=== PATIENT | male | born 1985 | race Caucasian/White ===

== ENCOUNTER 2018-09-29 22:20 | Emergency (ER) | payer SELFPAY ==
[2018-09-29] MEDS ORDERED: NA CHLORIDE 0.9% 1,000 ML ONE (23:09)
[2018-09-29 23:19] LABS: Absolute Lymphocytes (CBC) 1.5 K/uL (0.7-4.9); Basophils % 0.8 % (0-1.3); Hematocrit 49.8 % (39.6-49.0); Lymphocytes % 20.1 % (15.3-44.8); MPV 8.7 fL (7.6-11.3); RBC Red Blood Cell Count 5.13 M/uL (4.33-5.43)
[2018-09-29 23:39] LABS: Albumin 4.1 g/dL (3.4-5.0); Bilirubin Total 0.3 mg/dL (0.2-1.0); Protein, Total 7.3 g/dL (6.4-8.2)
--- NOTE | 2018-09-30 00:13 | ER ---
Nurse's Notes [facility] Name: Sami Denney Age: 33 yrs Sex: Male : 1985 Arrival Date: 09/29/2018 Time: 22:25 Bed 13 Private MD: Diagnosis: Rash and other nonspecific skin eruption;Dermatitis, unspecified;Heat exhaustion, unspecified Presentation: 09/29 22:32 Presenting complaint: Patient states: rash on bilateral arms X6 months. pt c/o ak1 dizziness and nausea when working out in the sun. Transition of care: patient was not received from another setting of care. Onset of symptoms is unknown. Risk Assessment: Do you want to hurt yourself or someone else? Patient reports no desire to harm self or others. Initial Sepsis Screen: Does the patient meet any 2 criteria? No. Patient's initial sepsis screen is negative. Does the patient have a suspected source of infection? No. Patient's initial sepsis screen is negative. Care prior to arrival: None. 22:32 Method Of Arrival: Ambulatory ak1 22:32 Acuity: BAKARI 3 ak1 Triage Assessment: 22:33 General: Appears in no apparent distress. Behavior is calm, cooperative. Pain: Denies ak1 pain. Historical: - Allergies: 22:33 No Known Allergies; ak1 - Home Meds: 22:33 None [Active]; ak1 - PMHx: 22:33 None; ak1 - PSHx: 22:33 sinus sx; left ear sx; ak1 - Immunization history:: Adult Immunizations unknown. - Social history:: Smoking status: Patient uses tobacco products, smokes one-half pack cigarettes per day. - Ebola Screening: : No symptoms or risks identified at this time. Screenin:50 Abuse screen: Denies threats or abuse. Nutritional screening: No deficits noted. jd3 Tuberculosis screening: No symptoms or risk factors identified. Fall Risk Ambulatory Aid- None/Bed Rest/Nurse Assist (0 pts). Gait- Normal/Bed Rest/Wheelchair (0 pts) Mental Status- Oriented to own ability (0 pts). Total Pryor Fall Scale indicates No Risk (0-24 pts). Assessment: 22:47 General: Appears in no apparent distress. uncomfortable, well nourished, Behavior is jd3 calm, cooperative, appropriate for age, Reports fatigue for 12-24 hours. Pain: Complains of pain in right arm and left arm Quality of pain is described as stinging. Neuro: Level of Consciousness is awake, alert, obeys commands, Oriented to person, place, time, situation. Cardiovascular: Denies chest pain, Capillary refill < 3 seconds Patient's skin is warm and dry. Respiratory: Airway is patent Respiratory effort is even, unlabored, Respiratory pattern is regular, symmetrical, Denies cough, shortness of breath. GI: No signs and/or symptoms were reported involving the gastrointestinal system. Reports nausea earlier in the day associated with dizziness. Patient currently denies constipation, diarrhea. : No signs and/or symptoms were reported regarding the genitourinary system. EENT: No signs and/or symptoms were reported regarding the EENT system. Derm: Skin is intact, Skin is dry, Skin is normal, Skin temperature is warm. Musculoskeletal: Circulation, motion, and sensation intact. Range of motion: intact in all extremities. 23:40 Reassessment: Patient appears in no apparent distress at this time. No changes from jd3 previously documented assessment. Patient and/or family updated on plan of care and expected duration. Pain level reassessed. Patient is alert, oriented x 3, equal unlabored respirations, skin warm/dry/pink. awaiting results. 09/30 00:22 Reassessment: Patient appears in no apparent distress at this time. Patient and/or jd3 family updated on plan of care and expected duration. Pain level reassessed. Patient is alert, oriented x 3, equal unlabored respirations, skin warm/dry/pink. reported understanding of discharge instructions. even and steady gait upon discharge. Vital Signs: 09/29 22:33 BP 150 / 108; Pulse 108; Resp 18; Temp 98.2; Pulse Ox 100% on R/A; Weight 108.86 kg ak1 (R); Height 6 ft. 3 in. (190.50 cm) (R); Pain 0/10; 09/30 00:21 BP 147 / 89; Pulse 96; Resp 17 S; Pulse Ox 100% on R/A; jd3 09/29 22:33 Body Mass Index 30.00 (108.86 kg, 190.50 cm) ak1 ED Course: 09/29 22:25 Patient arrived in ED. ds1 22:33 Triage completed. ak1 22:33 Arm band placed on Patient placed in an exam room, on a stretcher, Patient notified of ak1 wait time. 22:36 Jose A Nolen MD is Attending Physician. ruiz 22:47 Mahesh Graham, RN is Primary Nurse. jd3 22:50 Patient has correct armband on for positive identification. Bed in low position. Call jd3 light in reach. Side rails up X 1. 23:05 Initial lab(s) drawn, by me, sent to lab. EKG done, by ED staff, reviewed by Jose A Nolen MD. Inserted saline lock: 20 gauge in right antecubital area, using aseptic technique. Blood collected. 09/30 00:08 Abiodun Watts MD is Referral Physician. [facility] 00:23 No provider procedures requiring assistance completed. IV discontinued, intact, jd3 bleeding controlled, No redness/swelling at site. Pressure dressing applied. Administered Medications: 09/29 23:17 Drug: NS 0.9% 1000 ml Route: IV; Rate: 1 bolus; Site: right antecubital; jd3 09/30 00:21 Follow up: Response: No adverse reaction; IV Status: Completed infusion; IV Intake: jd3 1000ml Intake: 00:21 IV: 1000ml; Total: 1000ml. jd3 Outcome: 00:08 Discharge ordered by . [facility] 00:23 Discharged to home ambulatory. jd3 00:23 Condition: stable 00:23 Discharge instructions given to patient, Instructed on discharge instructions, follow up and referral plans. medication usage, Demonstrated understanding of instructions, follow-up care, medications, Prescriptions given X 3. 00:24 Patient left the ED. jd3 Signatures: Jose A Nolen MD MD cha Sanford, Demi ds1 Claire Mendoza RN RN ak1 Mahesh Graham, RN RN Isaiah Alcantara, RN RN tr5
--- NOTE | 2018-09-30 00:14 | EDPHYS ---
Physician Documentation [facility] Name: Sami Denney Age: 33 yrs Sex: Male : 1985 Arrival Date: 09/29/2018 Time: 22:25 Bed 13 Private MD: MONTSE Physician Jose A Nolen HPI: 09/29 22:56 This 33 yrs old Male presents to ER via Ambulatory with complaints of Rash. ruiz 22:56 This 33 yrs old Male presents to ER via Ambulatory with complaints of Rash. [facility] 22:56 The patient's rash thought to be caused by Eczema Dermatitis. The rash is located on [facility] the right arm and left arm. The rash can be described as erythematous. Onset: The symptoms/episode began/occurred 6 month(s) ago. Associated signs and symptoms: Pertinent positives: nausea. Historical: - Allergies: 22:33 No Known Allergies; ak1 - Home Meds: 22:33 None [Active]; ak1 - PMHx: 22:33 None; ak1 - PSHx: 22:33 sinus sx; left ear sx; ak1 - Immunization history:: Adult Immunizations unknown. - Social history:: Smoking status: Patient uses tobacco products, smokes one-half pack cigarettes per day. - Ebola Screening: : No symptoms or risks identified at this time. ROS: 22:58 Constitutional: Negative for fever, chills, and weight loss, Eyes: Negative for injury, ruiz pain, redness, and discharge, ENT: Negative for injury, pain, and discharge, Neck: Negative for injury, pain, and swelling, Cardiovascular: Negative for chest pain, palpitations, and edema, Respiratory: Negative for shortness of breath, cough, wheezing, and pleuritic chest pain, Back: Negative for injury and pain, : Negative for injury, bleeding, discharge, and swelling, Neuro: Negative for headache, weakness, numbness, tingling, and seizure, Psych: Negative for depression, anxiety, suicide ideation, homicidal ideation, and hallucinations, Allergy/Immunology: Negative for hives, rash, and allergies, Endocrine: Negative for neck swelling, polydipsia, polyuria, polyphagia, and marked weight changes. 22:58 Abdomen/GI: Positive for nausea, vomiting. 22:58 MS/extremity: Positive for rash. 22:58 Neuro: Positive for dizziness. Exam: 22:58 Constitutional: This is a well developed, well nourished patient who is awake, alert, ruiz and in no acute distress. Head/Face: Normocephalic, atraumatic. Eyes: Pupils equal round and reactive to light, extra-ocular motions intact. Lids and lashes normal. Conjunctiva and sclera are non-icteric and not injected. Cornea within normal limits. Periorbital areas with no swelling, redness, or edema. ENT: Nares patent. No nasal discharge, no septal abnormalities noted. Tympanic membranes are normal and external auditory canals are clear. Oropharynx with no redness, swelling, or masses, exudates, or evidence of obstruction, uvula midline. Mucous membranes moist. Neck: Trachea midline, no thyromegaly or masses palpated, and no cervical lymphadenopathy. Supple, full range of motion without nuchal rigidity, or vertebral point tenderness. No Meningismus. Chest/axilla: Normal chest wall appearance and motion. Nontender with no deformity. No lesions are appreciated. Cardiovascular: Regular rate and rhythm with a normal S1 and S2. No gallops, murmurs, or rubs. Normal PMI, no JVD. No pulse deficits. Respiratory: Lungs have equal breath sounds bilaterally, clear to auscultation and percussion. No rales, rhonchi or wheezes noted. No increased work of breathing, no retractions or nasal flaring. Back: No spinal tenderness. No costovertebral tenderness. Full range of motion. Male : Normal genitalia with no discharge or lesions. Skin: Warm, dry with normal turgor. Normal color with no rashes, no lesions, and no evidence of cellulitis. MS/ Extremity: Pulses equal, no cyanosis. Neurovascular intact. Full, normal range of motion. Neuro: Awake and alert, GCS 15, oriented to person, place, time, and situation. Cranial nerves II-XII grossly intact. Motor strength 5/5 in all extremities. Sensory grossly intact. Cerebellar exam normal. Normal gait. Psych: Awake, alert, with orientation to person, place and time. Behavior, mood, and affect are within normal limits. 22:58 Abdomen/GI: Inspection: abdomen appears normal, Bowel sounds: normal, Palpation: abdomen is soft and non-tender, Liver: no appreciated palpable abnormalities, Hernia: not appreciated. Vital Signs: 22:33 BP 150 / 108; Pulse 108; Resp 18; Temp 98.2; Pulse Ox 100% on R/A; Weight 108.86 kg ak1 (R); Height 6 ft. 3 in. (190.50 cm) (R); Pain 0/10; 09/30 00:21 BP 147 / 89; Pulse 96; Resp 17 S; Pulse Ox 100% on R/A; jd3 09/29 22:33 Body Mass Index 30.00 (108.86 kg, 190.50 cm) ak1 MDM: 09/29 22:36 Patient medically screened. [facility] 23:02 Data reviewed: vital signs, nurses notes, lab test result(s), EKG. [facility] 09/29 22:56 Order name: CBC with Diff; Complete Time: 23:30 [facility] 09/29 22:56 Order name: Comprehensive Metabolic Panel; Complete Time: 00:08 [facility] 09/29 22:56 Order name: EKG; Complete Time: 22:56 [facility] 09/29 23:30 Order name: Troponin (emerg Dept Use Only); Complete Time: 00:08 [facility] 09/30 00:20 Order name: Urine Dipstick--Ancillary (enter results) [facility] 09/29 22:56 Order name: Urine Dipstick-Ancillary (obtain specimen); Complete Time: 00:21 [facility] 09/29 22:56 Order name: EKG - Nurse/Tech; Complete Time: 23:05 [facility] Administered Medications: 23:17 Drug: NS 0.9% 1000 ml Route: IV; Rate: 1 bolus; Site: right antecubital; jd3 09/30 00:21 Follow up: Response: No adverse reaction; IV Status: Completed infusion; IV Intake: jd3 1000ml Disposition: 09/30/18 00:08 Discharged to Home. Impression: Rash and other nonspecific skin eruption, Dermatitis, unspecified, Heat exhaustion, unspecified. - Condition is Stable. - Discharge Instructions: Contact Dermatitis, Rash, Rash, [id number], Contact Dermatitis, [id number], Skin Biopsy. - Prescriptions for nystatin- triamcinolone 100,000-0.1 unit/g-% Topical cream - apply 1 application by TOPICAL route 2 times per day; 90 gram. Pepcid 20 mg Oral Tablet - take 1 tablet by ORAL route every 12 hours for 10 days; 20 tablet. Medrol (Johnny) 4 mg Oral Tablets, Dose Pack - take 1 tablet by ORAL route as directed - follow package instructions; 1 packet. - Work release form, Medication Reconciliation Form, Thank You Letter, Antibiotic Education, Prescription Opioid Use form. - Follow up: Private Physician; When: 2 - 3 days; Reason: Recheck today's complaints, Continuance of care, Re-evaluation by your physician. Follow up: Abiodun Watts; When: 2 - 3 days; Reason: Recheck today's complaints, Re-evaluation by your physician. - Problem is new. - Symptoms have improved. Signatures: Dispatcher [employer] EDJose A Friedman MD MD cha Krenek, Amber RN RN ak1 Mahesh Graham RN RN jd3 Corrections: (The following items were deleted from the chart) 00:24 00:08 09/30/2018 00:08 Discharged to Home. Impression: Rash and other nonspecific skin jd3 eruption; Dermatitis, unspecified; Heat exhaustion, unspecified. Condition is Stable. Discharge Instructions: Contact Dermatitis, Rash, Rash, [id number], Contact Dermatitis, [id number], Skin Biopsy. Prescriptions for nystatin-triamcinolone 100,000-0.1 unit/g-% Topical cream - apply 1 application by TOPICAL route 2 times per day; 90 gram, Pepcid 20 mg Oral Tablet - take 1 tablet by ORAL route every 12 hours for 10 days; 20 tablet, Medrol (Johnny) 4 mg Oral Tablets, Dose Pack - take 1 tablet by ORAL route as directed - follow package instructions; 1 packet. and Forms are Medication Reconciliation Form, Thank You Letter, Antibiotic Education, Prescription Opioid Use. Follow up: Private Physician; When: 2 - 3 days; Reason: Recheck today's complaints, Continuance of care, Re-evaluation by your physician. Follow up: Abiodun Watts; When: 2 - 3 days; Reason: Recheck today's complaints, Re-evaluation by your physician. Problem is new. Symptoms have improved. ruiz
[2018-09-30 00:25] LABS: Urine Blood NEGATIVE (NEG); Urine Glucose NEGATIVE (NEG); Urine Protein NEGATIVE (NEG); Urine Specific Gravity 1.015 (1.005-1.030)
--- NOTE | 2018-09-30 07:45 | EKG ---
Test Date: 2018-09-29 Test Time: 23:02:45 Vaccinator: ARGENIS MEASUREMENT RESULTS: Intervals: Rate: 101 [place]: 122 QRSD: 94 QT: 332 QTc: 430 [place]: P: 81 [place]: 122 QRS: 84 T: 37 INTERPRETIVE STATEMENTS: Sinus tachycardia Otherwise normal ECG No previous ECG available for comparison Electronically Signed On 09-30-18 07:44:58 CDT by Hernan Currie
== END 2018-09-30 00:24 | disposition home or self-care (01) ==
LOC: ER 22:20
DX: L30.9 Dermatitis, unspecified (principal); T67.5XXA Heat exhaustion, unspecified, initial encounter; X58.XXXA Exposure to other specified factors, initial encounter; Y93.89 Activity, other specified; Y92.9 Unspecified place or not applicable; F17.210 Nicotine dependence, cigarettes, uncomplicated
CPT/HCPCS: 36415; 80053; 81003; 84484; 85025; 93005; 96360; 99284; J7030

== ENCOUNTER 2018-11-12 22:50 | Emergency (ER) | payer SELFPAY ==
--- NOTE | 2018-11-13 01:21 | ER ---
Nurse's Notes [facility] Name: Sami Denney Age: 33 yrs Sex: Male : 1985 Arrival Date: 11/12/2018 Time: 22:57 Bed 25 Private MD: Diagnosis: Presentation: 11/12 23:14 Presenting complaint: Patient states: that for the past week he has had upper back pain fc and neck pain. Then started to have shortness of breath, cough and sore throat along with fatigue. Denies any injuries. Transition of care: patient was not received from another setting of care. Onset of symptoms was November 04, 2018. Risk Assessment: Do you want to hurt yourself or someone else? Patient reports no desire to harm self or others. Initial Sepsis Screen: Does the patient meet any 2 criteria? No. Patient's initial sepsis screen is negative. Does the patient have a suspected source of infection? No. Patient's initial sepsis screen is negative. Care prior to arrival: Medication(s) given: BC Powder last at 1700. 23:14 Method Of Arrival: Ambulatory fc 23:14 Acuity: BAKARI 3 fc Historical: - Allergies: 23:17 No Known Allergies; fc - Home Meds: 23:17 None [Active]; fc - PMHx: 23:17 None; fc - PSHx: 23:17 Left thumb surg; sinus surg; cyst removed from face; fc - Immunization history:: Last tetanus immunization: up to date Flu vaccine is not up to date. Patient has never been vaccinated. - Social history:: Smoking status: Patient uses tobacco products, smokes one-half pack cigarettes per day, Patient uses alcohol, occasionally. Patient/guardian denies using street drugs. - Ebola Screening: : Patient negative for fever greater than or equal to 101.5 degrees Fahrenheit, and additional compatible Ebola Virus Disease symptoms Patient denies exposure to infectious person Patient denies travel to an Ebola-affected area in the 21 days before illness onset. Screenin:18 Abuse screen: Denies threats or abuse. Nutritional screening: No deficits noted. fc Tuberculosis screening: No symptoms or risk factors identified. Fall Risk None identified. Assessment: 23:23 General: Appears in no apparent distress. comfortable, Behavior is calm, cooperative, ca1 appropriate for age. Pain: Complains of pain in left trapezius, right trapezius and thoracic area Pain currently is 8 out of 10 on a pain scale. Quality of pain is described as pinching, Pain began a week ago Aggravated by increased activity. Neuro: Level of Consciousness is awake, alert, obeys commands, Oriented to person, place, time, situation. Cardiovascular: Heart tones S1 S2 present Capillary refill < 3 seconds Patient's skin is warm and dry. Pulses are all present. Respiratory: Reports shortness of breath Airway is patent Respiratory effort is even, unlabored, Respiratory pattern is regular, symmetrical, Breath sounds are clear bilaterally. GI: Abdomen is flat, non-distended, Bowel sounds present X 4 quads. Abd is soft and non tender X 4 quads. : No deficits noted. No signs and/or symptoms were reported regarding the genitourinary system. EENT: Throat is reddened Reports throat hurts and losing his voice. Derm: Skin is intact, is healthy with good turgor, Skin is pink, warm \T\ dry. Musculoskeletal: Circulation, motion, and sensation intact. Capillary refill < 3 seconds, Range of motion: intact in all extremities. 11/13 01:19 Reassessment: patient found eloped at 0100. rv Vital Signs: 11/12 23:17 BP 145 / 100; Pulse 80; Resp 20; Temp 98.4(O); Pulse Ox 100% on R/A; Weight 111.13 kg fc (R); Height 6 ft. 3 in. (190.50 cm) (R); Pain 8/10; 23:17 Body Mass Index 30.62 (111.13 kg, 190.50 cm) ED Course: 22:57 Patient arrived in ED. cf2 23:15 Triage completed. fc 23:17 Arm band placed on Patient placed in an exam room, on a stretcher. fc 23:18 Patient has correct armband on for positive identification. Call light in reach. fc 23:23 Bed in low position. Side rails up X 1. Pulse ox on. NIBP on. ca1 23:51 Missael Marino RN is Primary Nurse. rv 11/13 00:28 Roberto Diaz MD is Attending Physician. ps1 01:19 No provider procedures requiring assistance completed. Patient did not have IV access rv during this emergency room visit. Administered Medications: No medications were administered Outcome: 01:19 Eloped from patient exam room, before seeing physician Time discovered patient gone: rv November 13, 2018 at 01:00 01:19 Condition: unchanged 01:20 Patient left the ED. rv Signatures: Mony Beatty RN RN fc Roberto Diaz MD MD ps1 Vicente, Ronaldo, RN RN rv Amanda Mcelroy RN RN [facility] Keith Díaz 2
--- NOTE | 2018-11-13 01:21 | EDPHYS ---
Physician Documentation [facility] Name: Sami Denney Age: 33 yrs Sex: Male : 1985 Arrival Date: 11/12/2018 Time: 22:57 Bed 25 Private MD: ED Physician Roberto Diaz HPI: 11/13 00:59 This 33 yrs old Male presents to ER via Ambulatory with complaints of Back ps1 Pain, Neck Problem, Shortness Of Breath. 00:59 Patient belongings not in room. Appears to have eloped. . ps1 Historical: - Allergies: 11/12 23:17 No Known Allergies; fc - Home Meds: 23:17 None [Active]; fc - PMHx: 23:17 None; fc - PSHx: 23:17 Left thumb surg; sinus surg; cyst removed from face; fc - Immunization history:: Last tetanus immunization: up to date Flu vaccine is not up to date. Patient has never been vaccinated. - Social history:: Smoking status: Patient uses tobacco products, smokes one-half pack cigarettes per day, Patient uses alcohol, occasionally. Patient/guardian denies using street drugs. - Ebola Screening: : Patient negative for fever greater than or equal to 101.5 degrees Fahrenheit, and additional compatible Ebola Virus Disease symptoms Patient denies exposure to infectious person Patient denies travel to an Ebola-affected area in the 21 days before illness onset. Vital Signs: 23:17 BP 145 / 100; Pulse 80; Resp 20; Temp 98.4(O); Pulse Ox 100% on R/A; Weight 111.13 kg fc (R); Height 6 ft. 3 in. (190.50 cm) (R); Pain 8/10; 23:17 Body Mass Index 30.62 (111.13 kg, 190.50 cm) Administered Medications: No medications were administered Disposition: 11/13/18 01:20 Patient left the facility before being seen by provider. - Patient left due to (see nurse's notes). Signatures: Mony Beatty RN RN Roberto Diaz MD MD ps1 Missael Marino RN RN rv
[2018-11-13 02:14] VITALS: BP 145/100; TEMP 98.4; O2SAT 100
== END 2018-11-13 01:20 | disposition left against medical advice (07) ==
LOC: ER 22:50
DX: Z53.21 Procedure and treatment not carried out due to patient leaving prior to being seen by health care provider (principal)
CPT/HCPCS: 99282